=== PATIENT | female | born 1950 | race Caucasian/White ===

== ENCOUNTER 2018-01-18 15:57 | Emergency (ER) | payer MEDICARE ==
[~2018-01-18] VITALS: Ht 165.1 cm; Wt 54.5 kg
[2018-01-18 16:02] VITALS: Ht 165.1 cm; Wt 54.5 kg
[2018-01-18] MEDS ORDERED: PROTONIX20 MG PO (16:05)
[2018-01-18] MEDS ORDERED: METOPROLOL TART50 MG PO (16:05)
[2018-01-18] MEDS ORDERED: VOLTAREN75 MG PO (17:09)
[2018-01-18] MEDS ORDERED: ROBAXIN500 MG PO (17:09)
[2018-01-18 17:28] VITALS: BP 147/97
== END 2018-01-18 17:28 | disposition home or self-care (01) ==
LOC: D.ER 15:57
DX: S20.212A Contusion of left front wall of thorax, initial encounter (principal); X58.XXXA Exposure to other specified factors, initial encounter; Y93.89 Activity, other specified; Y92.89 Other specified places as the place of occurrence of the external cause; Z86.19 Personal history of other infectious and parasitic diseases; I10 Essential (primary) hypertension; J44.9 Chronic obstructive pulmonary disease, unspecified; K21.9 Gastro-esophageal reflux disease without esophagitis; F17.200 Nicotine dependence, unspecified, uncomplicated